=== PATIENT | male | born 1990 | race Caucasian/White ===

== ENCOUNTER 2017-10-11 07:27 | Inpatient (IN) | payer OTHER ==
[~2017-10-11] VITALS: Ht 182.9 cm; Wt 85.8 kg
[2017-10-11] MEDS ORDERED: FENTANYL PF 100MCG/2ML AMPUL ONE ×2 (07:39)
[2017-10-11] MEDS ORDERED: FENTANYL PF 100MCG/2ML AMPUL IV ONE (08:00)
[2017-10-11] MEDS ORDERED: CEFAZOLIN 2 GM in IV D5W 100 ML IV ONE (08:00)
[2017-10-11 08:25] LABS: BASOPHILS % (AUTO) 0.2 % (0.0-2.0); EOSINOPHILS % (AUTO) 0.3 % (0.0-6.0); HEMATOCRIT 42 % (39-51); LYMPHOCYTES % (AUTO) 19.4 % (20.0-44.0); MEAN CORPUSCULAR HEMOGLOBIN 28 PG (26.0-33.0); MEAN CORPUSCULAR HGB CONC 33 g/dl (31.0-36.0); MEAN CORPUSCULAR VOLUME 85 fL (80-96); MONOCYTES # (AUTO) 0.9 /CMM (0.1-1.30); MONOCYTES % (AUTO) 8.7 % (2.0-12.0); NEUTROPHILS # (AUTO) 7.5 /CMM (1.8-8.9); NEUTROPHILS % (AUTO) 71.4 % (43.0-81.0); PLATELET COUNT (AUTO) 239 /CMM (150-450); RED BLOOD CELL COUNT(AUTO) 4.95 MIL/uL (4.5-6.0); WHITE BLOOD COUNT (AUTO) 10.6 K/uL (4.3-11.0)
[2017-10-11] MEDS ORDERED: MAGNESIUM HYDROXIDE 30 ML UDC PO PRN ×2 (08:30→08:45)
[2017-10-11] MEDS ORDERED: MORPHINE SULFATE INJ 2 MG/ML DISP.SYRIN IV PRN ×2 (08:30→08:45)
[2017-10-11] MEDS ORDERED: ONDANSETRON HCL/PF 4 MG/2 ML VIAL IVP PRN ×2 (08:30→08:45)
[2017-10-11] MEDS ORDERED: HYDROCODONE/APAP 5/325MG 1 EACH TABLET PO PRN (08:30)
[2017-10-11] MEDS ORDERED: MAG HYDROX/AL HYDROX/SIMETH 30 ML UDC PO PRN ×2 (08:30→08:45)
[2017-10-11] MEDS ORDERED: Z GUARD REMEDY 2 OZ OINT TP PRN ×2 (08:30→08:45)
[2017-10-11] MEDS ORDERED: ACETAMINOPHEN 325 MG TABLET PO PRN ×2 (08:30→08:45)
[2017-10-11 08:37] LABS: CALCIUM, SERUM 8.3 mg/dL (8.5-10.1); CREATININE 1.1 mg/dL (0.6-1.3); POTASSIUM 3.3 mmol/L (3.5-5.1)
[2017-10-11 08:49] LABS: INR 0.95 (0.87-1.13)
[2017-10-11 09:00] VITALS: BP 124/79
[2017-10-11 09:30] VITALS: BP 124/79
[2017-10-11] MEDS ORDERED: POTASSIUM CHLORIDE 20 MEQ TAB.PRT.SR PO ONE (10:30)
[2017-10-11] MEDS: HYDROCODONE/APAP 5/325MG 1 EACH TABLET PO PRN ×2 (11:51→21:19)
[2017-10-11] MEDS: IV NS 0.9% 1,000 ML IV PRN (11:56)
[2017-10-11] MEDS ORDERED: HYDROMORPHONE 1 MG/1 ML DISP.SYRIN IV PRN (12:30)
[2017-10-11] MEDS: HYDROMORPHONE INJ 2 MG/ML DISP.SYRIN IV PRN ×4 (12:59→21:55)
[2017-10-11] MEDS ORDERED: CLINDAMYCIN 600 MG in IV NS 0.9% 50 ML IV SCH (13:00)
[2017-10-11 16:00] VITALS: BP 138/84
[2017-10-11] MEDS: CLINDAMYCIN 600 MG in IV D5W 50 ML IV SCH ×2 (17:29→23:10)
[2017-10-11 20:00] VITALS: BP 145/77
[2017-10-11] MEDS: ZOLPIDEM TARTRATE 10 MG TABLET PO PRN (23:38)
[2017-10-12] VITALS (11 sets, daily range): BP systolic 120–143; BP diastolic 60–81
[2017-10-12] MEDS: IV NS 0.9% 1,000 ML IV PRN ×2 (03:39→20:48)
[2017-10-12] MEDS: HYDROMORPHONE INJ 2 MG/ML DISP.SYRIN IV PRN ×5 (04:05→23:27)
[2017-10-12] MEDS: CLINDAMYCIN 600 MG in IV D5W 50 ML IV SCH ×3 (05:00→20:10)
[2017-10-12 10:27] LABS: EOSINOPHILS % (AUTO) 1.2 % (0.0-6.0); HEMATOCRIT 40 % (39-51); HEMOGLOBIN 13.3 g/dL (13.5-17.5); LYMPHOCYTES % (AUTO) 10.9 % (20.0-44.0); MEAN CORPUSCULAR HEMOGLOBIN 28 PG (26.0-33.0); MEAN CORPUSCULAR HGB CONC 33 g/dl (31.0-36.0); MEAN CORPUSCULAR VOLUME 85 fL (80-96); MONOCYTES # (AUTO) 1.1 /CMM (0.1-1.30); MONOCYTES % (AUTO) 11.8 % (2.0-12.0); NEUTROPHILS # (AUTO) 7.2 /CMM (1.8-8.9); NEUTROPHILS % (AUTO) 76.1 % (43.0-81.0); PLATELET COUNT (AUTO) 193 /CMM (150-450); RDW COEFFICIENT OF VARIATION 13.4 (11.5-15.0); WHITE BLOOD COUNT (AUTO) 9.4 K/uL (4.3-11.0)
[2017-10-12 10:45] LABS: CALCIUM, SERUM 8.3 mg/dL (8.5-10.1); CREATININE 0.9 mg/dL (0.6-1.3); POTASSIUM 3.7 mmol/L (3.5-5.1)
[2017-10-12 10:51] LABS: ALBUMIN 3.5 g/dL (3.4-5.0); BILIRUBIN,TOTAL 0.8 mg/dL (0.2-1.0); MAGNESIUM 1.8 mg/dL (1.8-2.4); PHOSPHORUS 2.6 mg/dL (2.5-4.9); TOTAL PROTEIN, SERUM 6.9 g/dL (6.4-8.2)
[2017-10-12] MEDS ORDERED: BUPIVACAINE MPF 0.75% 30 ML VIAL ONE (15:08)
[2017-10-12] MEDS ORDERED: MIDAZOLAM HCL 2 MG/2ML VIAL ONE (15:09)
[2017-10-12] MEDS ORDERED: HYDROMORPHONE INJ 2 MG/ML DISP.SYRIN ONE (15:09)
[2017-10-12] MEDS ORDERED: ROCURONIUM BROMIDE 50 MG/5 ML ONE (15:22)
[2017-10-12] MEDS ORDERED: BACITRACIN 50000 UNITS/VIAL ONE (15:39)
[2017-10-12] MEDS ORDERED: LIDOCAINE 1% INJ 50 ML MDV IJ ONE (17:03)
[2017-10-13] MEDS: ZOLPIDEM TARTRATE 10 MG TABLET PO PRN ×2 (01:49→23:08)
[2017-10-13] MEDS: CLINDAMYCIN 600 MG in IV D5W 50 ML IV SCH ×3 (04:41→20:32)
[2017-10-13 08:00] VITALS: BP 143/86
[2017-10-13] MEDS: HYDROMORPHONE INJ 2 MG/ML DISP.SYRIN IV PRN ×3 (10:02→19:27)
[2017-10-13] MEDS: IV NS 0.9% 1,000 ML IV PRN (10:38)
[2017-10-13] MEDS: HYDROCODONE/APAP 5/325MG 1 EACH TABLET PO PRN (15:46)
[2017-10-13 16:00] VITALS: BP 127/90
[2017-10-13 20:00] VITALS: BP 151/83
[2017-10-13] MEDS: oxyCODONE/APAP (5/325 MG) 1 UDTAB TABLET PO PRN (22:34)
[2017-10-14] MEDS: CLINDAMYCIN 600 MG in IV D5W 50 ML IV SCH ×2 (05:05→12:21)
[2017-10-14] MEDS: oxyCODONE/APAP (5/325 MG) 1 UDTAB TABLET PO PRN ×3 (06:42→16:21)
[2017-10-14 08:00] VITALS: BP 133/80
[2017-10-14 16:00] VITALS: BP 127/90
== END 2017-10-14 16:28 | disposition home or self-care (01) | DRG 314 ==
LOC: ER 07:31 → MED 08:45
PROVIDERS: ADMIT Nurse Practitioner Acute Care; ATTEND Nurse Practitioner Acute Care
PROC: 0SSGXZZ Reposition Left Ankle Joint, External Approach (ICD-10-PCS; 2017-10-11)
PROC: 0QSM04Z Reposition Left Tarsal with Internal Fixation Device, Open Approach (ICD-10-PCS; principal; 2017-10-12 15:25)
DX: S92.122 Displaced fracture of body of left talus (principal); E87.6 Hypokalemia; S93.05XA Dislocation of left ankle joint, initial encounter; W10.9XXA Fall (on) (from) unspecified stairs and steps, initial encounter; F17.210 Nicotine dependence, cigarettes, uncomplicated; Y93.9 Activity, unspecified; Y92.89 Other specified places as the place of occurrence of the external cause; Z72.89 Other problems related to lifestyle
CPT/HCPCS: 36415; 71045-TC; 73600-TC; 73610-TC; 73700-TC; 80048-TC; 80053-TC; 83735-TC; 84100-TC; 85025-TC; 85730-TC; 86850-TC; 87081-TC; A4216; A4606; A6253; J0690; J1170; J2250; J2270; J3010; J3490; J7030; J7060; Z7610